=== PATIENT | female | born 1965 | race African-American/Black ===

== ENCOUNTER 2021-03-14 17:27 | Observation (INO) ==
[2021-03-14] MEDS ORDERED: SODIUM CHLORIDE 0.9% 1,000 ML IV STA (18:22)
[2021-03-14 20:01] LABS: Basophils % 0.1 % (0.0-0.8); Hematocrit 41.3 VOL% (35.7-47.0); Hemoglobin 12.9 GM/DL (12.0-16.0); Immature Granulocytes % 0.8 %; Immature Granulocytes Absolute 0.12 #; Lymphocytes # 1.4 10*3/uL (1.4-4.0); Lymphocytes % 9.3 % (21.3-54.2); Mean Corpuscular HGB Conc 31.2 GM/DL (32-36); Mean Corpuscular Volume 87.1 FL (87-102); Mean Platelet Volume 12.4 FL (9.6-12.0); Monocytes % 7.5 % (1.7-12.7); Neutrophils % 82.3 % (38.7-73.9); Platelet Count 172 T/CUMM (130-400); Red Blood Count 4.74 MC/CUMM (3.8-5.5); Red Cell Distribution Width 14.3 % (9.3-17.3); White Blood Count 15.2 T/CUMM (4-12)
[2021-03-14 20:26] LABS: Alanine Aminotransferase 24 U/L (13-56); Albumin 3.8 G/DL (3.4-5.0); Alkaline Phosphatase 175 U/L (45-117); Amylase 76 U/L (25-115); Aspartate Amino Transferase 17 U/L (0-37); Bilirubin,Total < 0.39 MG/DL (0.20-1.00); Blood Urea Nitrogen 18 MG/DL (7-18); Calcium 9.5 MG/DL (8.5-10.1); Carbon Dioxide 28 MMOL/L (21-32); Estimated Glom Filtration Rate 127 ML/MIN; Glucose 118 MG/DL (74-106); Osmolality,Calculated 275.8 MOS/KG (273-304); Potassium 3.7 MMOL/L (3.5-5.1); Sodium 137 MMOL/L (136-145); Total Protein 8.8 G/DL (6.4-8.2)
[2021-03-14 20:47] LABS: Phenytoin (Dilantin) 8.9 UG/ML (10-20)
[2021-03-14 22:39] LABS: Bacteria,Urine Occasional /HPF (Few); Bilirubin,Urine Negative (Negative); Blood, Urine Negative (Negative); Glucose,Urine (UA) 50 mg/dL (Negative); Ketones,Urine Negative (Negative); Mucus,Urine Occasional /LPF (Occasional); Nitrite,Urine Negative (Negative); Protein,Urine 100 MG/DL; RBC,Urine 2 /HPF (0-4); Squamous Epithelial Cell,Urine Occasional /HPF (0-10); Urine Appearance CLOUDY (Clear); Urine Color Yellow (Yellow); Urine Specific Gravity 1.024 (1.001-1.035); Urine Urobilinogen < 2.0 EU/DL (0.2-1.0)
[2021-03-14 22:43] LABS: Barbiturates Screen,Urine Positive (Negative); Benzodiazepines Screen,Urine Negative (Negative); Cannabinoid Screen,Urine Negative (Negative); Opiate Screen,Urine Negative (Negative); Phencyclidine Screen,Urine Negative (Negative)
[2021-03-15] MEDS ORDERED: POTASSIUM CHLORIDE RIDER 10 MEQ/100 ML PREMIX IV PRN (01:00)
[2021-03-15] MEDS ORDERED: DEXTROSE 50% 25 GM/50 ML VIAL IV PRN (01:00)
[2021-03-15] MEDS ORDERED: MAGNESIUM SULF RIDER 4 GM/100 ML PREMIX IV PRN (01:00)
[2021-03-15] MEDS ORDERED: ONDANSETRON 4 MG/2 ML VIAL IV PRN (01:00)
[2021-03-15] MEDS ORDERED: ACETAMINOPHEN 325 MG TABLET PO PRN (01:00)
[2021-03-15] MEDS ORDERED: GLUCAGON 1 MG VIAL IM PRN (01:00)
[2021-03-15] MEDS ORDERED: MAGNESIUM SULF RIDER 2 GM/50 ML PREMIX IV PRN (01:00)
[2021-03-15] MEDS: SODIUM CHLORIDE 0.9% 1,000 ML IV SCH ×2 (02:14→13:26)
[2021-03-15 05:22] LABS: Basophils % 0.2 % (0.0-0.8); Hematocrit 38.1 VOL% (35.7-47.0); Hemoglobin 11.8 GM/DL (12.0-16.0); Immature Granulocytes Absolute 0.14 #; Lymphocytes # 1.3 10*3/uL (1.4-4.0); Lymphocytes % 9.4 % (21.3-54.2); Mean Corpuscular Volume 88.2 FL (87-102); Mean Platelet Volume 13.2 FL (9.6-12.0); Monocytes % 7.9 % (1.7-12.7); Neutrophils % 81.5 % (38.7-73.9); Platelet Count 154 T/CUMM (130-400); Red Blood Count 4.32 MC/CUMM (3.8-5.5); Red Cell Distribution Width 14.1 % (9.3-17.3); White Blood Count 13.6 T/CUMM (4-12)
[2021-03-15 05:40] LABS: Calcium 8.5 MG/DL (8.5-10.1); Osmolality,Calculated 283.3 MOS/KG (273-304); Potassium 3.3 MMOL/L (3.5-5.1)
[2021-03-15] MEDS: PANTOPRAZOLE 40 MG TABLET PO SCH ×2 (09:35→10:23)
[2021-03-15] MEDS: DOCUSATE SODIUM 100 MG CAPSULE PO SCH ×3 (09:35→20:39)
[2021-03-15] MEDS: ENOXAPARIN 40 MG/0.4 ML SYRINGE SUBCUT SCH (09:35)
[2021-03-15] MEDS ORDERED: FLUTICASONE 50 MCG NASAL SPRAY 16 GM BOTTLE BOTH NARES PRN (11:30)
[2021-03-15] MEDS ORDERED: BISACODYL 5 MG TABLET PO PRN (11:30)
[2021-03-15] MEDS ORDERED: SODIUM CHLORIDE 0.45% 1,000 ML IV SCH (11:30)
[2021-03-15] MEDS ORDERED: cloNIDine 0.1 MG TABLET PO ONE (17:15)
[2021-03-15] MEDS: OLANZapine 5 MG TABLET PO SCH (17:37)
[2021-03-15] MEDS: PHENobarbital 30 MG TABLET PO SCH (20:39)
[2021-03-16 05:35] LABS: Basophils # 0.1 10*3/uL (0.0-0.2); Basophils % 0.4 % (0.0-0.8); Hemoglobin 13.4 GM/DL (12.0-16.0); Immature Granulocytes % 2.1 %; Immature Granulocytes Absolute 0.24 #; Lymphocytes # 1.5 10*3/uL (1.4-4.0); Lymphocytes % 13.7 % (21.3-54.2); Mean Corpuscular HGB Conc 31.2 GM/DL (32-36); Mean Corpuscular Volume 90.3 FL (87-102); Mean Platelet Volume 13.9 FL (9.6-12.0); Monocytes % 12.4 % (1.7-12.7); NRBC # 0.02 10*3/uL; Neutrophils % 71.4 % (38.7-73.9); Platelet Count 104 T/CUMM (130-400); Red Blood Count 4.76 MC/CUMM (3.8-5.5); Red Cell Distribution Width 14.2 % (9.3-17.3); White Blood Count 11.2 T/CUMM (4-12)
[2021-03-16 05:36] LABS: Osmolality,Calculated 278.4 MOS/KG (273-304); Potassium 3.2 MMOL/L (3.5-5.1)
[2021-03-16 06:41] LABS: Hypochromasia 1+; Microcytosis 1+; Ovalocytes Slight
[2021-03-16] MEDS ORDERED: POTASSIUM CHLORIDE 20 MEQ TABLET PO ONE (07:45)
[2021-03-16] MEDS: ASCORBIC ACID 500 MG TABLET PO SCH (08:55)
[2021-03-16] MEDS: CHOLECALCIFEROL 5,000 UNIT TABLET PO SCH (08:55)
[2021-03-16] MEDS: amLODIPine 10 MG TABLET PO SCH (08:55)
[2021-03-16] MEDS: PANTOPRAZOLE 40 MG TABLET PO SCH (08:55)
[2021-03-16] MEDS: DOCUSATE SODIUM 100 MG CAPSULE PO SCH ×2 (08:55→21:00)
[2021-03-16] MEDS: POLYETHYLENE GLYCOL POWDER 17 GM PACK PO SCH (08:55)
[2021-03-16] MEDS: ENOXAPARIN 40 MG/0.4 ML SYRINGE SUBCUT SCH (08:55)
[2021-03-16] MEDS: PHENobarbital 30 MG TABLET PO SCH ×2 (08:55→21:00)
[2021-03-16] MEDS ORDERED: hydrALAZINE 20 MG/1 ML VIAL ONE (14:35)
[2021-03-16 15:38] LABS: Albumin 3.8 G/DL (3.4-5.0); Bilirubin,Total 0.5 MG/DL (0.20-1.00); Calcium 9.1 MG/DL (8.5-10.1); Osmolality,Calculated 279.5 MOS/KG (273-304); Potassium 3.5 MMOL/L (3.5-5.1)
[2021-03-16] MEDS: OLANZapine 5 MG TABLET PO SCH (16:27)
[2021-03-16 16:34] LABS: Basophils # 0.1 10*3/uL (0.0-0.2); Basophils % 0.4 % (0.0-0.8); Eosinophils % 0.1 % (0.00-10.9); Hematocrit 44.1 VOL% (35.7-47.0); Hemoglobin 14.1 GM/DL (12.0-16.0); Immature Granulocytes % 2.7 %; Immature Granulocytes Absolute 0.36 #; Lymphocytes # 1.9 10*3/uL (1.4-4.0); Lymphocytes % 14.4 % (21.3-54.2); Mean Corpuscular Volume 85.8 FL (87-102); Mean Platelet Volume 12.7 FL (9.6-12.0); Monocytes % 13.2 % (1.7-12.7); NRBC # 0.05 10*3/uL; Neutrophils % 69.2 % (38.7-73.9); Platelet Count 186 T/CUMM (130-400); Red Blood Count 5.14 MC/CUMM (3.8-5.5); Red Cell Distribution Width 13.9 % (9.3-17.3); White Blood Count 13.2 T/CUMM (4-12)
[2021-03-16 16:46] LABS: Phenytoin (Dilantin) 4.7 UG/ML (10-20)
[2021-03-16] MEDS ORDERED: PHENYTOIN ER 100 MG CAPSULE PO SCH (17:00)
[2021-03-17 06:35] LABS: Basophils % 0.3 % (0.0-0.8); Eosinophils % 0.1 % (0.00-10.9); Hematocrit 42.4 VOL% (35.7-47.0); Hemoglobin 13.9 GM/DL (12.0-16.0); Immature Granulocytes % 1.3 %; Immature Granulocytes Absolute 0.14 #; Lymphocytes % 18.2 % (21.3-54.2); Mean Corpuscular HGB Conc 32.8 GM/DL (32-36); Mean Corpuscular Volume 84.8 FL (87-102); Mean Platelet Volume 12.1 FL (9.6-12.0); Monocytes % 10.8 % (1.7-12.7); NRBC # 0.05 10*3/uL; Neutrophils % 69.3 % (38.7-73.9); Platelet Count 157 T/CUMM (130-400); White Blood Count 11.1 T/CUMM (4-12)
[2021-03-17 07:02] LABS: Calcium 9.2 MG/DL (8.5-10.1); Osmolality,Calculated 280.4 MOS/KG (273-304); Potassium 3.1 MMOL/L (3.5-5.1)
[2021-03-17] MEDS ORDERED: POTASSIUM CHLORIDE 20 MEQ TABLET PO ONE (07:42)
[2021-03-17] MEDS: ASCORBIC ACID 500 MG TABLET PO SCH (10:01)
[2021-03-17] MEDS: PANTOPRAZOLE 40 MG TABLET PO SCH (10:02)
[2021-03-17] MEDS: PHENobarbital 30 MG TABLET PO SCH (10:02)
[2021-03-17] MEDS: CHOLECALCIFEROL 5,000 UNIT TABLET PO SCH (10:02)
[2021-03-17] MEDS: DOCUSATE SODIUM 100 MG CAPSULE PO SCH (10:03)
[2021-03-17] MEDS: amLODIPine 10 MG TABLET PO SCH (10:03)
[2021-03-17] MEDS: ENOXAPARIN 40 MG/0.4 ML SYRINGE SUBCUT SCH (10:14)
[2021-03-17] MEDS: POLYETHYLENE GLYCOL POWDER 17 GM PACK PO SCH (10:15)
[2021-03-17 11:44] VITALS: BP 150/85
== END 2021-03-17 14:40 | disposition home or self-care (01) ==
LOC: EDUNIT# → N.ED 17:27 → N.EDINP 17:27 → N.5E 03-15 00:39
PROVIDERS: ADMIT Internal Medicine; ATTEND Internal Medicine